=== PATIENT | male | born 1995 | race Caucasian/White ===

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

== ENCOUNTER 2023-11-23 13:05 | Emergency (ER) | payer OTHER ==
[~2023-11-23] VITALS: Ht 182.9 cm; Wt 97.0 kg
[2023-11-23] MEDS ORDERED: HYDR-4902 PO (15:37)
[2023-11-23 15:45] VITALS: BP 116/71; PULSE 59; RESP 16; TEMP 98.5; O2SAT 100
[2023-11-23] MEDS: IBUPROFEN 600 MG TAB PO ONE (16:07)
== END 2023-11-23 16:07 | disposition home or self-care (01) ==
LOC: ER 13:05
DX: M79.18 Myalgia, other site (principal); M54.2 Cervicalgia; M54.50 Low back pain, unspecified; V98.8XXA Other specified transport accidents, initial encounter; Y93.89 Activity, other specified; Y92.89 Other specified places as the place of occurrence of the external cause; Y99.8 Other external cause status
CPT/HCPCS: 72040